=== PATIENT | male | born 1985 | race Caucasian/White ===

== ENCOUNTER 2017-02-21 12:46 | Emergency (ER) | payer OTHER ==
[~2017-02-21] VITALS: Ht 182.9 cm; Wt 80.3 kg
[2017-02-21] MEDS ORDERED: Bacitracin Oint UD TOPIC ONE (13:30)
--- NOTE | 2017-02-21 13:34 | Diagnostic Imaging Report ---
Indication: pain Findings: 3 views of the left hand were obtained. Normal bony mineralization and alignment are demonstrated. No acute fractures, erosions, or periosteal reaction are seen. Soft tissues are unremarkable. Impression: Negative examination of the left hand.
[2017-02-21] MEDS ORDERED: IBUPROFEN600 MG ORAL (13:38)
[2017-02-21] MEDS ORDERED: BACITRACIN15 GM TOPIC (13:38)
[2017-02-21] MEDS ORDERED: TRAMADOL HCL50 MG ORAL (13:38)
[2017-02-21 18:16] VITALS: BP 132/85
--- NOTE | 2017-02-21 21:27 | Emergency Room Report ---
History of Present Illness General Chief Complaint: Upper Extremity Injury Source: Patient Present Illness [facility] The patient is a 31-year-old male presenting with left hand pain after he states his hand got caught in a moulder at work today. He states he quickly removed his hand and is now experiencing pain described as 9/10 dull ache primarily to the index finger. Pain worse with movement. He denies any numbness or tingling. He denies any other injury or symptoms Allergies: Coded Allergies: No Known Allergies (Unverified , 02/21/17) Patient History Past Medical History: see triage record Pertinent Family History: none Reviewed Nursing Documentation: PMH: Agreed, PSxH: Agreed Nursing Documentation-PMH Past Medical History: No Stated History Review of Systems All Other Systems: negative except mentioned in HPI Physical Exam Vital Signs Date Time Temp Pulse Resp B/P (MAP) Pulse Ox O2 Delivery O2 Flow Rate FiO2 02/21/17 12:51 97.9 57 18 132/85 97 Room Air Sp02 EP Interpretation: reviewed, normal General Appearance: no apparent distress, alert, GCS 15, non-toxic Head: normocephalic, atraumatic Eyes: bilateral eye normal inspection, bilateral eye PERRL ENT: hearing grossly normal, normal pharynx, no angioedema, normal voice Musculoskeletal: back normal, gait/station normal, normal range of motion, decreased range of motion - decreased flexion of L index finger at PIPJ, swelling - L index finger and thumb, tender - TTP over the L index finger and thumb diffusely Neurologic: alert, oriented x3, responsive, motor strength/tone normal, sensory intact, speech normal Skin: escobar - blistering of skin on 2nd finger and dorsum of hand Lymphatic: no adenopathy Procedures Splinting Splinting : Consent: Verbal Location: L arm Pre-Made Type: plastic Splint: volar Pre-Proc Neuro Vasc Exam: normal Post-Proc Neuro Vasc Exam: normal Patient Tolerated: Well Complications: None Medical Decision Making PA Attestation Dr. Chapman is my supervising physician. Patient management was discussed with my supervising physician Diagnostic Impression: Primary Impression: Second degree burn of left hand Qualified Codes: T23.242A - Burn of second degree of multiple left fingers ( nail), including thumb, initial encounter Additional Impression: Crush injury of hand Qualified Codes: S67.22XA - Crushing injury of left hand, initial encounter ER Course The patient is a 31-year-old male presenting for hand injury Ddx considered include but not limited to sprain/strain, fracture, contusion, 1st/2nd degree burn, among others PE: NAD L hand: Multiple blisters of the dorsum of the hand including the second digit. There is soft tissue swelling of the index finger and thumb as well as diffuse tenderness over these areas. No obvious deformity Limited flexion of the 2nd digit PIPJ X ray the hand is unremarkable Bacitracin applied to burned areas. Volar splint placed. ER precautions given Other X-Ray Diagnostic Results Other X-Ray Diagnostic Results : X-Ray ordered: L hand # of Views/Limited Vs Complete: 3 View Indication: Pain EP Interpretation: Yes Interpretation: no dislocation, no soft tissue swelling, no fractures Impression: No acute disease Interpreting ER Provider: Carter Chapman MD PA Scribe Text I am acting as scribe for my supervising physician. My supervising physician's interpretation of the L hand xrays are there are no fractures, dislocations or soft tissue swelling. Last Vital Signs Date Time Temp Pulse Resp B/P (MAP) Pulse Ox O2 Delivery O2 Flow Rate FiO2 02/21/17 18:16 97.9 18 132/85 97 Room Air 02/21/17 12:51 57 Status: improved Disposition: HOME, SELF-CARE Condition: Improved Scripts Bacitracin (Bacitracin) 28.4 Gm Oint...g. 1 APPLIC TOPIC THREE TIMES A DAY, #28 GM Prov: TERZIAN,MARIAH P.A. 02/21/17 Tramadol Hcl* (ULTRAM*) 50 Mg Tablet 50 MG ORAL Q6H Y for For Pain, #10 TAB 0 Refills Prov: TERZIAN,MARIAH P.A. 02/21/17 Ibuprofen* (MOTRIN*) 600 Mg Tablet 600 MG ORAL Q8H Y for For Pain, #30 TAB 0 Refills Prov: TERZIAN,MARIAH P.A. 02/21/17 Patient Instructions: Burn Care, Crush Injury, Fingers or Toes Additional Instructions: I discussed my findings with the patient. All questions and concerns have been answered. Treatment and medication compliance have been addressed. I advised the patient that they need to follow up with primary doctor and/or hand specialist as soon as possible. Return to ED if symptoms worsen, new symptoms arise, or if needed for any reason. Patient verbalized understanding of discharge instructions. MARIAH JOHNSTON Feb 21, 2017 21:27
== END 2017-02-21 14:29 | disposition home or self-care (01) ==
LOC: EMR 13:30
DX: T23.242A Burn of second degree of multiple left fingers (nail), including thumb, initial encounter (principal); T23.202A Burn of second degree of left hand, unspecified site, initial encounter; S67.22XA Crushing injury of left hand, initial encounter; W23.0XXA Caught, crushed, jammed, or pinched between moving objects, initial encounter; Y92.511 Restaurant or cafe as the place of occurrence of the external cause; Y99.0 Civilian activity done for income or pay
CPT/HCPCS: 29125; 99284